=== PATIENT | male | born 1960 | race Caucasian/White ===

== ENCOUNTER → 2021-12-24 10:32 | Outpatient (REF) | payer OTHER, SELFPAY | LOC: ANHLAB 10:32 | PROVIDERS: PCP Emergency Medicine; Visit Provider Nurse Practitioner | DX: D49.2 Neoplasm of unspecified behavior of bone, soft tissue, and skin (principal) | CPT/HCPCS: 88305 ==

== ENCOUNTER 2022-03-03 14:28 | Outpatient (CLI) | payer OTHER, SELFPAY ==
--- NOTE | ~2022-03-03 | XR_ITS ---
EXAMINATION: XR shoulder LT min 2V DATE: 03/03/2022 14:50 INDICATION: Left shoulder pain. TECHNIQUE: 4 views of left shoulder were obtained. COMPARISON: Left shoulder radiographs 03/20/2008 FINDINGS: Bone alignment is normal. No fracture. There is severe osteoarthritis of glenohumeral joint and acromioclavicular joint. There are loose bodies in bicipital groove. IMPRESSION: 1. Polyarticular osteoarthritis. 2. Left glenohumeral joint loose bodies in bicipital groove. Reviewed, dictated and finalized at location A.
--- NOTE | 2022-03-03 15:14 | ECG_ITS ---
Measurements Intervals [place] Rate: 69 P: 61 IA: 157 QRS: 30 QRSD: 86 T: 26 QT: 379 QTc: 406 Interpretive Statements SINUS RHYTHM NO PREVIOUS ECG AVAILABLE FOR COMPARISON Electronically Signed On 03-03-2022 15:53:56 CDT by Morgan Nazario M.D.
== END 2022-03-03 14:29 | disposition home or self-care (01) ==
LOC: ANHIMG 14:31
PROVIDERS: PCP Emergency Medicine; Visit Provider Emergency Medicine
DX: R07.9 Chest pain, unspecified (principal); M19.012 Primary osteoarthritis, left shoulder; M24.012 Loose body in left shoulder
CPT/HCPCS: 73030; 93005

== ENCOUNTER 2023-04-07 11:56 | Outpatient (NON) | payer OTHER, SELFPAY | END 2023-04-07 11:57 | disposition home or self-care (01) | LOC: ANHLAB 04-08 11:58 | PROVIDERS: PCP Emergency Medicine; Visit Provider Nurse Practitioner | DX: L82.1 Other seborrheic keratosis (principal) | CPT/HCPCS: 88305 ==

== ENCOUNTER 2023-05-04 13:58 | Outpatient (NON) | payer OTHER, SELFPAY | END 2023-05-04 13:59 | disposition home or self-care (01) | PROVIDERS: PCP Emergency Medicine; Visit Provider Nurse Practitioner | DX: C44.92 Squamous cell carcinoma of skin, unspecified (principal) | CPT/HCPCS: 88305; 88331 ==

== ENCOUNTER 2025-03-21 10:41 | Outpatient (CLI) | payer MEDICARE, SELFPAY ==
--- NOTE | 2025-03-21 10:55 | ECG_ITS ---
Test Date: 2025-03-21 11:05:52 Measurements Intervals [place] Rate: 52 P: 51 WV: 154 QRS: -4 QRSD: 104 T: 42 QT: 421 QTc: 394 Interpretive Statements SINUS BRADYCARDIA WITH FREQUENT SUPRAVENTRICULAR PREMATURE COMPLEXES BASELINE ARTIFACT- I, II, AVR, AVL, AVF, V1-V6 ABNORMAL ECG No previous ECG available for comparison Electronically Signed On 03-21-2025 12:26:51 CDT by Juan Luis Jackson D.O.
--- OUTSIDE RECORDS SUMMARY | 2025-03-21 12:14 | XMS_ITS | Clinical Summary ---
Author Organization [facility] Thony Hidalgo Address [address] [place] [address] Phone Care Team Providers Care Tube Splicer Name Role Phone Brad Mcelroy MD Primary Care Provider [phone] Social History Tobacco Use Types Packs/Day Years Used Date Smoking Tobacco: Never Assessed Sex and Gender Information Value Date Recorded Sex Assigned at Not on file Legal Sex Male 4:16 AM SCRAP BREAKER Gender Identity Not on file Sexual Orientation Not on file Plan of Treatment Health Maintenance Due Date Last Done Comments DTAP/TDAP/TD VACCINES (1 - Tdap) 1977 COLORECTAL SCREENING 2003 Colorectal Cancer Screening 2003 FIT-DNA Q 3 years 2003 FIT/FOBT Q 1 year 2003 Flex Sig/CT Colonography Q 5 years 2003 PNEUMOCOCCAL VACCINE 50+ YEARS (1 of 1 - PCV) 06/20/20 08 ZOSTER VACCINE (1 of 2) 2008 INFLUENZA VACCINE (#1) 2024 RSV VACCINE (60+ or ) (1 - 1-dose 75+ series) 2033 Insurance [employer] CHOICE POS II Care Teams Tube Splicer Relationship Specialty Start Date End Date Brad Mcelroy MD [address] [place] [address] PCP - General 10/27/05
--- OUTSIDE RECORDS SUMMARY | 2025-03-21 12:14 | XMS_ITS | Clinical Summary ---
Author Organization [facility] Address [address] [place] [address] Care Team Providers Care Public Speaking Instructor Name Role Phone Ramos Vasquez MD Primary Care Provide r Bro Lee MD Unavailable [phone] Allergies No known active allergies Medications pantoprazole DR (PROTONIX) 20 mg EC tabletIndication s:Treatment of Non-Bleeding Gastric Disorder Take 1 tablet (20 mg total) by mouth every morning Active mupirocin (BACTROBAN) 2 % ointment APPLY A PEA SIZE AMOUNT TWICE DAILY TO EACH NOSTRIL FOR 5 DAYS (START 12/13/23) 4 Active cyclobenzaprine (FLEXERIL) 10 mg tablet Take 1 tablet (10 mg total) by mouth 3 (three) times a day as needed for muscle spasms for muscle spasms 4 Active metFORMIN XR (GLUCOPHAGE XR) 500 mg 24 hr tablet Take 1 tablet (500 mg total) by mouth daily with breakfast 3 Active Accu-Chek Guide test strips strip daily 3 Active vit C/E/Zn/coppr/lut ein/zeaxan (PRESERVISION AREDS-2 ORAL)Indications :eye Take 1 tablet by mouth every morning Active ascorbic acid (VITAMIN C ORAL) Take 500 mg by mouth every morning Active cinnamon bark 500 mg capsuleIndicatio ns:supplement Take 1 capsule (500 mg total) by mouth every morning Active cyanocobalamin, vitamin B-12, (VITAMIN B-12 ORAL) Take 1 tablet by mouth every morning Active sildenafiL (VIAGRA) 100 mg tabletIndication s:Erectile Dysfunction Take 1 tablet (100 mg total) by mouth daily as needed for erectile dysfunction Active Active Problems Problem Noted Date Diagnosed Date Osteoarthritis 03/10/2023 S/P TKR (total knee replacement), right 03/06/20 GERD (gastroesophageal reflux disease) 3 Diabetes 02/26/2023 Osteoarthritis of right knee 02/26/2023 Surgical History Surgery Date Site/Laterality Comments SHOULDER ARTHROPLASTY Medical History Medical History Date Comments GERD (gastroesophageal reflux disease) Diabetes (HCC) Osteoarthritis of right knee Family History Medical History Relation Name Comments Diabetes Father Heart disease Father Hepatitis Mother Kidney disease Mother Relation Name Status Comments Father Mother Social History Tobacco Use Types Packs/Day Years Used Date Smoking Tobacco: Never Smokeless Tobacco: Never Tobacco Cessation:Counseling Given: Not Answered AUDIT-C Answer Date Recorded Q1: How often do you have a drink containing alcohol? Never 12/18/2023 Q2: How many drinks containi ng alcohol do you have on a typical day when you are drinking? Patient does not drink 4 Q3: How often do you have si x or more drinks on one occasion? Never 12/18/2023 Personal Safety Answer Date Recorded Have you ever been in or are you currently in a harmful physical or emotional relationship or is someone making you feel afraid or unsafe? Denies 12/18/2023 Sex and Gender Information Value Date Recorded Sex Assigned at Not on file Legal Sex Male 1:44 AM BRANCH ASSOCIATE Gender Identity Not on file Sexual Orientation Not on file Obstetrics History Last Filed Vital Signs Vital Sign Reading Time Taken Comments Blood Pressure 133/76 12/18/2023 1:20 PM BRANCH ASSOCIATE Pulse 73 12/18/2023 1:30 PM BRANCH ASSOCIATE Temperature 36.1 C (97 F) 12/18/2023 11:10 AM BRANCH ASSOCIATE Respiratory Rate 23 12/18/2023 1:30 PM BRANCH ASSOCIATE Oxygen Saturation 96% 12/18/2023 1:25 PM BRANCH ASSOCIATE Inhaled Oxygen Concentration - - Weight 95.9 kg (211 lb 6.4 oz) 12/18/2023 7:34 A M BRANCH ASSOCIATE Height 177.8 cm (5' 10 ) 12/18/2023 7:34 AM BRANCH ASSOCIATE Body Mass Index 30.33 12/18/2023 7:34 AM BRANCH ASSOCIATE Plan of Treatment Health Maintenance Due Date Last Done Comments Albumin Creatinine Ratio, Urine 1958 Colon Cancer Screening-Colonoscopy 1958 Depression Screening 1958 Hemoglobin A1C 1958 Hepatitis C Screening 1958 Prostate Cancer Screening-PSA 1958 Dilated Eye Exam 1958 Foot Exam 1958 Lipid Panel 1958 Hepatitis B Screening 1976 Pneumococcal vaccine 65+ (1 of 2 - PCV) 1977 Zoster Vaccine (1 of 2) 2008 DTaP/Tdap/Td Vaccine (2 - Td or Tdap) 03/17/2023 Abdominal Aortic Aneurysm (AAA) Screen 2023 Well Visit 65+ 2023 eGFR 02/25/2024 02/24/2023 Covid-19 Vaccine (3 - season) 2024, 10/19/2021 Influenza Vaccine (#1) 2024 09/23/2023 Fall Risk Assessment 12/18/2024 12/18/2023 Medical Devices Implanted Type Area Machine Puller Over Device Identifier Shelf Expiration Date Model / Serial / Lot [employer] Attune Cementless Rotate Platform Knee 9 Baseplate Tibial [id number] - [id number] Implanted:Qty: 1 on 03/10/2023 by Chi Murillo MD at [facility] Right: Knee [employer] [id number] 10/29/2032 [id number] / / [id number] [employer] Attune 6mm Cruciate Retaining Rotate Platform Knee 8 Insert [id number] - [id number] Implanted:Qty: 1 on 03/10/2023 by Chi Murillo MD at [facility] Right: Knee [employer] [id number] 08/29/2027 [id number] / / [id number] [employer] Attune Cruciate Retain Cementless Knee Right 8 Component Femoral [id number] - [id number] Implanted:Qty: 1 on 03/10/2023 by Chi Murillo MD at [facility] Right: Knee [employer] [id number] 04/29/2032 [id number] / / [id number] [employer] Triathlon Tritanium Knee 7 Baseplate Tibial 5536-B-700 - [id number] Implanted:Qty: 1 on 12/18/2023 by Bro Lee MD at [facility] Left: Knee [employer] 09/27/2028 5536-B-700 / / [employer] Triathlon Cruciate Retain Bead Knee Left 6 Component Femoral Pa 5517-F-601 - [id number] Implanted:Qty: 1 on 12/18/2023 by Bro Lee MD at [facility] Left: Knee [employer] 08/07/2028 5517-F-601 / / [employer] Insert Tibial Triathlon 7 H9mm Knee Bearing Condylar Stabilize Sterile 8137-C-358-E - [id number] Implanted:Qty: 1 on 12/18/2023 by Bro Lee MD at [facility] Left: Knee [employer] 12/17/2027 [id number] / / Procedures Procedure Name Priority Date/Time Associated Diagnosis Comments EGFR Routine 02/24/2023 10:59 AM CDT Preop testing from Last 3 Months or Most Recently Relevant to Health Maintenance Results * eGFR (02/24/2023 10:59 AM CDT) [facility] eGFR 88 mL/min/1. 73 m2 [facility] Comment: Interpretive Data Reference Interval Normal >/= 90 mL/min/1.73m2 Mildly decreased* 60 - 89 mL/min/1.73m2 Mildly to moderately decreased 45 - 59 mL/min/1.73m2 Moderately to severely decreased 30 - 44 mL/min/1.73m2 Severely decreased 15 - 29 mL/min/1.73m2 Kidney Failure < 15 mL/min/1.73m2 *Relative to young adult level Estimated glomerular filtration rate is determined by the 2020 CKD-EPI equation recommended by the National Kidney Foundation (A Unifying Approach to GFR Estimation: Recommendations of the NKF-ASK Task Force on Reassessing the Inclusion of Race in Diagnosing Kidney Disease, JASN 2020). The CKD-EPI equation should not be used for patients with unstable renal function and has not been validated in children and those over 70. Current interpretive data was last reviewed 2021. Blood 02/24/2023 10:5 9 AM CDT 02/24/2023 10:59 AM CDT us Delaney Ugalde NP LAB BLOOD ORDERABLES Final R esult [facility] [address] [place] [address] from Last 3 Months or Most Recently Relevant to Health Maintenance Insurance [facility] MEDICARE ADVANTAGE [facility] MEDIC[facility] ADVANTAGE Advance Directives For more information, please contact: [phone] * Full Code (Latest Code Status on File) Date Activated Date Inactivated Comments 03/10/2023 2:32 PM 03/11/2023 4:13 PM Care Teams Public Speaking Instructor Relationship Specialty Start Date End Date Ramos Vasquez MD [address] [facility] [place] [address] PCP - General Emergency Medicine 02/24/23 [place] [address] [facility] [address] [place] [address] Referring Physician Orthopedic Surgery 12/18/23
--- OUTSIDE RECORDS SUMMARY | 2025-03-21 12:14 | XMS_ITS | Clinical Summary ---
Author Organization [facility] Address [address] [place] [address] Care Team Providers Care Chainstitch Seat Joiner Name Role Phone Ramos Vasquez MD Primary Care Provider [phone] Allergies No known active allergies Social History Tobacco Use Types Packs/Day Years Used Date Smoking Tobacco: Never Assessed Sex and Gender Information Value Date Recorded Sex Assigned at Not on file Legal Sex Male 5:47 PM ANIMATION PRODUCER Gender Identity Not on file Sexual Orientation Not on file Last Filed Vital Signs Vital Sign Reading Time Taken Comments Blood Pressure 150/79 12/17/2023 5:55 PM ANIMATION PRODUCER Pulse 75 12/17/2023 5:55 PM ANIMATION PRODUCER Temperature 36.7 C (98 F) 12/17/2023 5:55 PM ANIMATION PRODUCER Respiratory Rate 16 12/17/2023 5:55 PM ANIMATION PRODUCER Oxygen Saturation 96% 12/17/2023 5:55 PM ANIMATION PRODUCER Inhaled Oxygen Concentration - - Weight 95.3 kg (210 lb) 12/17/2023 5:55 PM ANIMATION PRODUCER Height 177.8 cm (5' 10 ) 12/17/2023 5:55 PM ANIMATION PRODUCER Body Mass Index 30.13 12/17/2023 5:55 PM ANIMATION PRODUCER Plan of Treatment Health Maintenance Due Date Last Done Comments Colorectal Cancer Screening Colonoscopy (10 Years) 1958 Hepatitis C 1976 Pneumococcal Vaccine: 50+ Years (1 of 1 - PCV) 2008 Zoster Vaccines (1 of 2) 2008 Annual Medicare Wellness Visit 2023 COVID-19 Vaccine (2023-2 5 season) 2024 11/14/2022, 10/19/2021 DTaP, Tdap and Td Vaccines ( 3 - Td or Tdap) 04/21/2033 04/21/2023, 03/17/2013 RSV Immunization or 60+ Years (1 - 1-dose 75+ series) 2033 Meningococcal B Vaccine Aged Out No l onger eligible based on patient's age to complete this topic Meningococcal Vaccine Aged Out No chikis ferdinand eligible based on patient's age to complete this topic RSV Immunizations Under 20 Months Aged Out No longer eligible b ased on patient's age to complete this topic Insurance [employer] Care Teams Chainstitch Seat Joiner Relationship Specialty Start Date End Date Ramos Vasquez MD [address] [place] [address] PCP - General INTERNAL MEDICINE 12/17/23
--- OUTSIDE RECORDS SUMMARY | 2025-03-21 12:14 | XMS_ITS | Encounter Summary ---
Author Organization [facility] Address [address] [place] [address] Care Team Providers Care Environmental Remediation Specialist Name Role Phone Brad Mcelroy MD Primary Care Provider [phone] Encounter Details Date Type Department Care Team (Late st Contact Info) Description 10/27/2005 Outpatient Historical [facility] Edward Varma MD [address] [place] [address] [place] [address] RECTAL & ANAL HEMORRHAGE (Primary Dx) Social History Tobacco Use Types Packs/Day Years Used Date Smoking Tobacco: Never Assessed Sex and Gender Information Value Date Recorded Sex Assigned at Not on file Legal Sex Male 4:16 AM JAVASCRIPT APPLICATION DEVELOPER Gender Identity Not on file Sexual Orientation Not on file documented as of this encounter Plan of Treatment Not on file documented as of this encounter Visit Diagnoses Diagnosis Hemorrhage of rectum and anus- Primary documented in this encounter Care Teams Environmental Remediation Specialist Relationship Specialty Start Date End Date Brad Mcelroy MD [address] [place] [address] PCP - General 10/27/05 documented as of this encounter
--- OUTSIDE RECORDS SUMMARY | 2025-03-21 12:14 | XMS_ITS | Referral Summary ---
Author Organization [facility] Address [address] [place] [address] Care Team Providers Care Epic Cadence Specialists Name Role Phone Ramos Vasquez MD Primary Care Provide r Bro Lee MD Unavailable [phone] Allergies No known active allergies Medications pantoprazole [...] Diabetes 02/26/2023 Osteoarthritis of right knee 02/26/2023 Social History Tobacco Use Types Packs/Day Years Used Date Smoking Tobacco: Never Smokeless Tobacco: Never Tobacco Cessation:Counseling Given: Not Answered AUDIT-C Answer Date Recorded Q1: How often do you have a drink containing alcohol? Never 12/18/2023 Q2: How many drinks containi ng alcohol do you have on a typical day when you are drinking? Patient does not drink Q3: How often do you have si [...] on file Legal Sex Male 1:44 AM REED POLISHER Gender Identity Not on file Sexual Orientation Not on file Last Filed Vital Signs Vital Sign Reading Time Taken Comments Blood Pressure 133/76 12/18/2023 1:20 PM REED POLISHER Pulse 73 12/18/2023 1:30 PM REED POLISHER Temperature 36.1 C (97 F) 12/18/2023 11:10 AM REED POLISHER Respiratory Rate 23 12/18/2023 1:30 PM REED POLISHER Oxygen Saturation 96% 12/18/2023 1:25 PM REED POLISHER Inhaled Oxygen Concentration - - Weight 95.9 kg (211 lb 6.4 oz) 12/18/2023 7:34 A M REED POLISHER Height 177.8 cm (5' 10 ) 12/18/2023 7:34 AM REED POLISHER Body Mass Index 30.33 12/18/2023 7:34 AM REED POLISHER Plan of Treatment Not on file Medical Devices Implanted Type Area Certified Medication Aide Device Identifier Shelf Expiration Date Model / Serial / Lot [employer] Attune Cementless Rotate Platform Knee 9 Baseplate Tibial [id number] - [id number] Implanted:Qty: 1 on 03/10/2023 by Chi Murillo MD at [facility] Right: Knee [employer] [id number] 10/29/2032 [id number] / / [id number] [employer] Attune 6mm Cruciate Retaining Rotate Platform Knee 8 Insert [id number] - [id number] Implanted:Qty: 1 on 03/10/2023 by Chi Murillo MD at [facility] Right: Knee [employer] [id number] 08/29/2027 [id number] / / [id number] [employer] Attune Cruciate Retain Cementless Knee Right 8 Component Femoral [id number] - [id number] Implanted:Qty: 1 on 03/10/2023 by Chi Murillo MD at [facility] Right: Knee [employer] [id number] 04/29/2032 [id number] / / [id number] [employer] Triathlon Tritanium Knee 7 Baseplate Tibial 5536-B-700 - [id number] Implanted:Qty: 1 on 12/18/2023 by Bro Lee MD at [facility] Left: Knee [employer] 09/27/2028 5536-B-700 / / [employer] Triathlon Cruciate Retain Bead Knee Left 6 Component Femoral Pa 5517-F-601 - [id number] Implanted:Qty: 1 on 12/18/2023 by Bro Lee MD at [facility] Left: Knee [employer] 08/07/2028 5517-F-601 / / [employer] Insert Tibial Triathlon 7 H9mm Knee Bearing Condylar Stabilize Sterile 6518-J-205-E - [id number] Implanted:Qty: 1 on 12/18/2023 by Bro Lee MD at [facility] Left: Knee [employer] 12/17/2027 9993-K-[id number] / / Procedures Procedure Name Priority Date/Time Associated Diagnosis Comments EGFR Routine 02/24/2023 10:59 AM CDT Preop testing from Last 3 Months or Most Recently Relevant to Health Maintenance Results * eGFR (02/24/2023 10:59 AM CDT) eGFR 88 mL/min/1. 73 m2 [facility] Comment: Interpretive Data Reference Interval Normal >/= [...] of Race in Diagnosing Kidney Disease, JASN 202). The CKD-EPI equation should not be used for patients with unstable renal function and has not been validated in children and those over 70. Current interpretive data was last reviewed 2021. Blood 02/24/2023 10:5 9 AM CDT 02/24/2023 10:59 AM CDT us Delaney Ugalde NP LAB BLOOD ORDERABLES Final R esult [facility] [address] [place] [address] from Last 3 Months or Most Recently Relevant to Health Maintenance Insurance [facility] MEDICARE ADVANTAGE [facility] MEDIC[facility] ADVANTAGE Advance Directives For more information, please contact: [phone] * Full Code (Latest Code Status on File) Date Activated Date Inactivated Comments 03/10/2023 2:32 PM 03/11/2023 4:13 PM Care Teams Epic Cadence Specialists Relationship Specialty Start Date End Date Ramos Vasquez MD [address] [place] [address] PCP - General Emergency Medicine 02/24/23 [place] [address] [place] [address] Referring Physician Orthopedic Surgery 12/18/23
== END 2025-03-21 10:42 | disposition home or self-care (01) ==
LOC: ANHCARD 10:42
PROVIDERS: PCP Emergency Medicine; Visit Provider Emergency Medicine
DX: R00.2 Palpitations (principal); R94.31 Abnormal electrocardiogram [ECG] [EKG]
CPT/HCPCS: 93005

== ENCOUNTER 2025-03-24 13:26 | Outpatient (CLI) | payer MEDICARE, SELFPAY ==
--- OUTSIDE RECORDS SUMMARY | 2025-03-24 13:32 | XMS_ITS | Referral Summary ---
Author Organization [facility] Address [address] [place] [address] Care Team Providers Care Lehr Tender Name Role Phone Ramos Vasquez MD Primary Care Provide r Bro Lee MD Unavailable [phone] Allergies No known active allergies Medications pantoprazole [...] on file Legal Sex Male 1:44 AM PACKING AND STAMPING MACHINE OPERATOR Gender Identity Not on file Sexual Orientation Not on file Last Filed Vital Signs Vital Sign Reading Time Taken Comments Blood Pressure 133/76 12/18/2023 1:20 PM PACKING AND STAMPING MACHINE OPERATOR Pulse 73 12/18/2023 1:30 PM PACKING AND STAMPING MACHINE OPERATOR Temperature 36.1 C (97 F) 12/18/2023 11:10 AM PACKING AND STAMPING MACHINE OPERATOR Respiratory Rate 23 12/18/2023 1:30 PM PACKING AND STAMPING MACHINE OPERATOR Oxygen Saturation 96% 12/18/2023 1:25 PM PACKING AND STAMPING MACHINE OPERATOR Inhaled Oxygen Concentration - - Weight 95.9 kg (211 lb 6.4 oz) 12/18/2023 7:34 A M PACKING AND STAMPING MACHINE OPERATOR Height 177.8 cm (5' 10 ) 12/18/2023 7:34 AM PACKING AND STAMPING MACHINE OPERATOR Body Mass Index 30.33 12/18/2023 7:34 AM PACKING AND STAMPING MACHINE OPERATOR Plan of Treatment Not on file Medical Devices Implanted Type Area Metal Organ Pipe Maker Device Identifier Shelf Expiration Date Model / Serial / Lot [employer] Attune Cementless Rotate Platform Knee 9 Baseplate Tibial [id number] - [id number] Implanted:Qty: 1 on 03/10/2023 by Chi Murillo MD at [facility] Right: Knee [employer] [id number] 10/29/2032 [id number] / / [id number] [employer] Attune 6mm Cruciate Retaining Rotate Platform Knee 8 Insert [id number] - [id number] Implanted:Qty: 1 on 03/10/2023 by Chi Murillo MD at [facility] Right: Knee [employer] [id number] 08/29/2027 [id number] / / [id number] [employer] Attune Cruciate Retain Cementless Knee Right 8 Component Femoral [id number] - [id number] Implanted:Qty: 1 on 03/10/2023 by Chi Murillo MD at [facility] Right: Knee [employer] [id number] 04/29/2032 [id number] / / [id number] [employer] Triathlon Tritanium Knee 7 Baseplate Tibial 5536-B-700 - [id number] Implanted:Qty: 1 on 12/18/2023 by Bro Lee MD at [facility] Left: Knee [employer] 09/27/2028 5536-B-700 / / [employer] Triathlon Cruciate Retain Bead Knee Left 6 Component Femoral Pa 5517-F-601 - [id number] Implanted:Qty: 1 on 12/18/2023 by Bro Lee MD at [facility] Left: Knee [employer] 08/07/2028 5517-F-601 / / [employer] Insert Tibial Triathlon 7 H9mm Knee Bearing Condylar Stabilize Sterile 4656-L-227-E - [id number] Implanted:Qty: 1 on 12/18/2023 by Bro Lee MD at [facility] Left: Knee [employer] 12/17/2027 2665-L-374-[id number] / / Procedures Procedure Name Priority Date/Time Associated Diagnosis Comments EGFR Routine 02/24/2023 10:59 AM CDT Preop testing from Last 3 Months or Most Recently Relevant to Health Maintenance Results * eGFR (02/24/2023 10:59 AM CDT) eGFR 88 mL/min/1. 73 m2 [facility] Comment: Interpretive Data Reference Interval Normal >/= [...] LAB BLOOD ORDERABLES Final R esult [facility] [address] Department [place] [address] from Last 3 Months or Most Recently Relevant to Health Maintenance Insurance [facility] ADV[facility] Advance Directives For more information, please contact: [phone] * Full Code (Latest Code Status on File) Date Activated Date Inactivated Comments 03/10/2023 2:32 PM 03/11/2023 4:13 PM Care Teams Lehr Tender Relationship Specialty Start Date End Date Ramos Vasquez MD [address] [place] [address] PCP - General Emergency Medicine 02/24/23 [place] [address] [place] [address] Referring Physician Orthopedic Surgery 12/18/23
--- OUTSIDE RECORDS SUMMARY | 2025-03-24 13:32 | XMS_ITS ---
Author Organization [facility] Address [address] [place], [place] [id number] Care Team Providers Care Match Up Worker Name Role Phone SHAIELSH Irwin Unavailable [phone] Ramos Vasquez Unavailable Unavailable ROCIO PAZ Unavailable [phone] REASON FOR VISIT *Possible ingrown nail, previous surgery Medications Medication SIG (Take, Route, Frequency, Duration) Notes Start Date End Date Status metFORMIN HCl ER 500 MG TAKE 2 TABLETS B Y MOUTH IN THE EVENING Oral for 90 Days Active HYDROcodone-Acetaminophen 5-325 MG TAKE 1 TO 2 TABLETS BY MOUTH EVERY 4 TO 6 HOURS NEEDED FOR PAIN Oral for 7 Days Active Accu-Chek Guide - USE ONCE DAILY In Vi tro for 100 Days Active ALPRAZolam 0.5 MG TAKE 1 TABLET BY ORACIO TH TWICE DAILY NEEDED FOR ANXIETY Oral for 10 Days Active Vital Signs Height 70.00 in 04/28/2024 Weight 210 lbs 04/28/2024 BMI 30.13 kg/m2 04/28/2024 Height-cm 177.80 cm 04/28/2024 Weight-kg 95.25 kg 04/28/2024 Encounters Encounter Location Date Provider Diagnosis [facility] [address], [place] [id number] 04/28/2024 ROCIO PAZ Ingrowing nail L60.0 ; Cellulitis of left toe L03.032 ; Pain in left toe(s) M79.675 and Localized edema R60.0 Assessments Encounter Date Diagnosis (ICD Code) Assessment Notes Treatment Notes Treatment Clinical Notes Section Notes 04/28/2024 Ingrowing nail (ICD-10 - L60.0) Following skin prep, the offending nail border to left hallux was debrided without anesthesia. The patient was instructed on monitoring for infection or recurrence. 04/28/2024 Cellulitis of left toe (ICD-10 - L03.032) The area of cellulitis was evaluated and it should be noted that antibiotics were discussed and a close evaluation was performed to assess the need for IV antibiotics versus oral antibiotics. Due to the non-ascending nature of the cellulitis and with no signs of abscess, topical antibiotics were chosen. 04/28/2024 Pain in left toe(s) (ICD-10 - M79.675) 04/28/2024 Localized edema (ICD-10 - R60.0) Plan Of Treatment Treatment Notes Assessment Notes Ingrowing nail Following skin prep, the offending nail border to left hallux was debrided without anesthesia. The patient was instructed on monitoring for infection or recurrence. Cellulitis of left toe The area of cellu litis was evaluated and it should be noted that antibiotics were discussed and a close evaluation was performed to assess the need for IV antibiotics versus oral antibiotics. Due to the non-ascending nature of the cellulitis and with no signs of abscess, topical antibiotics were chosen. Next Appt Details Follow Up: 2 Weeks, Reason: Progress Notes * TYE CAMPBELLDOB:1960 (63 yo M)Acc No.[id number]:04/28/2024 Patient: TYE TAPIA Provider: Helio PAZ :1960 A ge:63 Y S ex:Male Date:04/28/2024 Address:[address] [place] [address] Subjective: * Chief Complaints: * 1 . *Possible ingrown nail, previous surgery. * HPI: H PI: New Complaint E stablished patient presents with a new complaint. , Patient complains of an ingrown nail. Pt states he had his nail removed last year due to issues, pt has been picking at his nail and is now ingrown. L-1 medial , MA: As. * ROS: G eneral / Constitutional: Patient denies c hills, fatigue, fever. C ardiovascular: Patient denies c ongenital heart problems, palpatations, shortness of breath. P atient complains of h air loss on legs. M usculoskeletal: Patient denies o rthotic use, broken foot bone, muscle cramps. S kin: Patient complains of f ungal nails, dry skin, nail changes.? N eurologic: Patient denies s troke, loss of use of extremity, confusion. * Medical History: * Medications: T aking Accu-Chek Guide - Strip USE ONCE DAILY In Vitro , Taking ALPRAZolam 0.5 MG Tablet TAKE 1 TABLET BY MOUTH TWICE DAILY NEEDED FOR ANXIETY Oral , Taking metFORMIN HCl ER 500 MG Tablet Extended Release 24 Hour TAKE 2 TABLETS BY MOUTH IN THE EVENING Oral , Taking HYDROcodone-Acetaminophen 5-325 MG Tablet TAKE 1 TO 2 TABLETS BY MOUTH EVERY 4 TO 6 HOURS NEEDED FOR PAIN Oral Objective: * Vitals: W t:210lbs, Wt-k.25 kg, Ht: 70.00 in, Ht-cm: 177.80 cm, BMI:30.13Index, Body Surface Area: 2.17. * Examination: P hysical Examination: V ascular: Dorsalis Pedis pulse 2/4 left foot Posterior Tibial pulse 2/4 left foot Dorsalis Pedis pulse 2/4 right foot Posterior Tibial pulse 2/4 right foot, Capillary Refill Time is noted to be less than 3 secs to ten digits, temperature gradient is warm to cool to bilateral lower extremity and pedal hair present, there are no varicosities noted to bilateral lower extremity. Dermatologic: there are no open lesions, an ingrowing nail is noted to lateral border of left hallux with periungual erythema and swelling present, noticeable serous drainage expressed from lateral nail border left hallux, interdigital spaces clean dry and intact, no ecchymoses, mild erythema noted to left hallux lateral nail fold Neurologic: protective sensation intact to light touch, vibratory sensation intact to first metatarsophalangeal joint bilaterally Musculoskeletal: no calf pain noted bilateral lower extremity, arch height 3/5 non weight bearing to bilateral foot, pain to palpation lateral and proximal nail fold to left hallux, pain to palpation nail plate left hallux. Assessment: * Assessment: 1. I ngrowing nail - L60.0 (Primary) 2 . C ellulitis of left toe - L03.032 3 . P ain in left toe(s) - M79.675 4 . L ocalized edema - R60.0 Plan: * Treatment: 2. C ellulitis of left toe Notes: The area of cellulitis was evaluated and it should be noted that antibiotics were discussed and a close evaluation was performed to assess the need for IV antibiotics versus oral antibiotics. Due to the non-ascending nature of the cellulitis and with no signs of abscess, topical antibiotics were chosen. * Follow Up: 2 Weeks * Billing Information: * Visit Code: 47071 Office Visit, Est Pt., Level 3. 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 , Patient complains of an ingrown nail. Pt states he had his nail removed last year due to issues, pt has been picking at his nail and is now ingrown. L-1 HERBERTH [place]: As Examination Category Sub-Category Detail Notes Category Not es Physical Examination Vascular: Dorsalis Pedis pulse 2/4 left foot Posterior Tibial pulse 2/4 left foot Dorsalis Pedis pulse 2/4 right foot Posterior Tibial pulse 2/4 right foot, Capillary Refill Time is noted to be less than 3 secs to ten digits, temperature gradient is warm to cool to bilateral lower extremity and pedal hair present, there are no varicosities noted to bilateral lower extremity. Dermatologic: there are no open lesions, an ingrowing nail is noted to lateral border of left hallux with periungual erythema and swelling present, noticeable serous drainage expressed from lateral nail border left hallux, interdigital spaces clean dry and intact, no ecchymoses, mild erythema noted to left hallux lateral nail fold Neurologic: protective sensation intact to light touch, vibratory sensation intact to first metatarsophalangeal joint bilaterally Musculoskeletal: no calf pain noted bilateral lower extremity, arch height 3/5 non weight bearing to bilateral foot, pain to palpation lateral and proximal nail fold to left hallux, pain to palpation nail plate left hallux
--- OUTSIDE RECORDS SUMMARY | 2025-03-24 13:32 | XMS_ITS | Clinical Summary ---
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 Gender Identity Not on file Sexual Orientation Not on file Obstetrics History Last Filed Vital Signs Vital Sign Reading Time Taken Comments Blood Pressure 133/76 12/18/2023 1:20 PM CORPORATION LAWYER Pulse 73 12/18/2023 1:30 PM CORPORATION LAWYER Temperature 36.1 C (97 F) 12/18/2023 11:10 AM CORPORATION LAWYER Respiratory Rate 23 12/18/2023 1:30 PM CORPORATION LAWYER Oxygen Saturation 96% 12/18/2023 1:25 PM CORPORATION LAWYER Inhaled Oxygen Concentration - - Weight 95.9 kg (211 lb 6.4 oz) 12/18/2023 7:34 A M CORPORATION LAWYER Height 177.8 cm (5' 10 ) 12/18/2023 7:34 AM CORPORATION LAWYER Body Mass Index 30.33 12/18/2023 7:34 AM CORPORATION LAWYER Plan of Treatment Health Maintenance Due Date [...] Covid-19 Vaccine (3 - season) 2024, 10/19/2021 Fall Risk Assessment 12/18/2024 12/18/2023 Influenza Vaccine (Season Ended) 2025 09/23/20 Medical Devices Implanted Type Area Network Support Specialist Device Identifier Shelf Expiration Date Model / Serial / Lot [employer] Attune Cementless Rotate Platform Knee 9 Baseplate Tibial [id number] - [id number] Implanted:Qty: 1 on 03/10/2023 by Chi Murillo MD at [facility] Right: Knee [employer] [id number] 10/29/2032 [id number] / / [id number] [employer] Attune 6mm Cruciate Retaining Rotate Platform Knee 8 Insert [id number] - [id number] Implanted:Qty: 1 on 03/10/2023 by Chi Murillo MD at [facility] Right: Knee [employer] [id number] 08/29/2027 [id number] / / [id number] [employer] Attune Cruciate Retain Cementless Knee Right 8 Component Femoral [id number] - [id number] Implanted:Qty: 1 on 03/10/2023 by Chi Murillo MD at [facility] Right: Knee [employer] [id number] 04/29/2032 [id number] / / [id number] [employer] Triathlon Tritanium Knee 7 Baseplate Tibial 5536-B-700 - [id number] Implanted:Qty: 1 on 12/18/2023 by Bro Lee MD at [facility] Left: Knee [employer] 09/27/2028 5536-B-700 / / [employer] Triathlon Cruciate Retain Bead Knee Left 6 Component Femoral Pa 5517-F-601 - [id number] Implanted:Qty: 1 on 12/18/2023 by Bro Lee MD at [facility] Left: Knee [employer] 08/07/2028 5517-F-601 / / [employer] Insert Tibial Triathlon 7 H9mm Knee Bearing Condylar Stabilize Sterile [id number] - [id number] Implanted:Qty: 1 on 12/18/2023 by rBo Lee MD at [facility] Left: Knee [employer] 12/17/2027 [id number]-[id number] / / Procedures Procedure Name Priority Date/Time Associated Diagnosis Comments EGFR Routine 02/24/2023 10:59 AM CDT Preop testing from Last 3 Months or Most Recently Relevant to Health Maintenance Results * eGFR (02/24/2023 10:59 AM CDT) [facility] eGFR 88 mL/min/1. 73 m2 [facility] Comment: Interpretive Data Reference Interval Normal [...] LAB BLOOD ORDERABLES Final R esult [facility] [address] [place] [address] from Last 3 Months or Most Recently Relevant to Health Maintenance Insurance [facility] Address: [facility] [address] [place] [address] [facility] MEDIC[facility] Address: [facility] [address] [place] [address] Advance Directives For more information, please contact: [phone] * Full Code (Latest Code Status on File) Date Activated Date Inactivated Comments 03/10/2023 2:32 PM 03/11/2023 4:13 PM Care Teams Juvenile Corrections Officer Relationship Specialty Start Date End Date Ramos Vasquez MD [address] [facility] [place] [address] PCP - General Emergency Medicine 02/24/23 [place] [address] [facility] [address] [place] [address] Referring Physician Orthopedic Surgery 12/18/23
--- OUTSIDE RECORDS SUMMARY | 2025-03-24 13:32 | XMS_ITS | Clinical Summary ---
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
--- OUTSIDE RECORDS SUMMARY | 2025-03-24 13:33 | XMS_ITS | Encounter Summary ---
Author Organization [facility] Address 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
--- OUTSIDE RECORDS SUMMARY | 2025-03-24 13:33 | XMS_ITS | Clinical Summary ---
Author Organization [facility] Address [address] [place] [address] Care Team Providers Care Speech Communication Instructor Name Role Phone Ramos Vasquez MD Primary Care Provider [phone] Allergies No known active allergies Social History Tobacco Use Types Packs/Day Years Used Date Smoking Tobacco: Never Assessed Sex and Gender Information Value Date Recorded Sex Assigned at Not on file Legal Sex Male 5:47 PM ANALYTICAL ENGINEER Gender Identity Not on file Sexual Orientation Not on file Last Filed Vital Signs Vital Sign Reading Time Taken Comments Blood Pressure 150/79 12/17/2023 5:55 PM ANALYTICAL ENGINEER Pulse 75 12/17/2023 5:55 PM ANALYTICAL ENGINEER Temperature 36.7 C (98 F) 12/17/2023 5:55 PM ANALYTICAL ENGINEER Respiratory Rate 16 12/17/2023 5:55 PM ANALYTICAL ENGINEER Oxygen Saturation 96% 12/17/2023 5:55 PM ANALYTICAL ENGINEER Inhaled Oxygen Concentration - - Weight 95.3 kg (210 lb) 12/17/2023 5:55 PM ANALYTICAL ENGINEER Height 177.8 cm (5' 10 ) 12/17/2023 5:55 PM ANALYTICAL ENGINEER Body Mass Index 30.13 12/17/2023 5:55 PM ANALYTICAL ENGINEER Plan of Treatment Health Maintenance Due Date [...] patient's age to complete [place] [address] [employer] [facility] [employer] Care Teams Speech Communication Instructor Relationship Specialty Start Date End Date Ramos Vasquez MD [address] [place] [address] PCP - General INTERNAL MEDICINE 12/17/23
--- OUTSIDE RECORDS SUMMARY | 2025-03-24 13:33 | XMS_ITS | Patient Health Record ---
Author Organization [facility] Address [address] [place], [place] [id number] Care Team Providers Care Account Retention Representative Name Role Phone SHAILESH Irwin Unavailable [phone] Ramos Vasquez Unavailable Unavailable ROCIO PAZ Unavailable [phone] Allergies No Known Allergies Reason For Referral No Information Medications Medication SIG (Take, Route, Frequency, Duration) [...] FOR ANXIETY Oral for 10 Days Active Problems Problem Type SNOMED Code ICD Code Onset Dates Problem Status W/U Status Risk Notes Problem Ingrowing nail (550434116) Ingrowing nail (L60.0) Active confirmed Vital Signs Height-cm 177.80 cm 04/28/2024 Weight-kg 95.25 kg 04/28/2024 Height 70.00 in 04/28/2024 Weight 210 lbs 04/28/2024 BMI 30.13 kg/m2 04/28/2024 Encounters Encounter Location Date Provider Diagnosis [facility] [address] [place], [place] [id number] 04/28/2024 ROCIO PAZ Ingrowing nail L60.0 ; Cellulitis of left toe L03.032 ; Pain in left toe(s) M79.675 and Localized edema R60.0 Assessments Encounter Date Diagnosis (ICD Code) Assessment Notes Treatment Notes Treatment Clinical Notes Section Notes 04/28/2024 Cellulitis of left toe (ICD-10 - L03.032) The area of cellulitis was evaluated and it should be noted that antibiotics were discussed and a close evaluation was performed to assess the need for IV antibiotics versus oral antibiotics. Due to the non-ascending nature of the cellulitis and with no signs of abscess, topical antibiotics were chosen. 04/28/2024 Ingrowing nail (ICD-10 - L60.0) Following skin prep, the offending nail border to left hallux was debrided without anesthesia. The patient was instructed on monitoring for infection or recurrence. 04/28/2024 Pain in left toe(s) (ICD-10 - M79.675) 04/28/2024 Localized edema (ICD-10 - R60.0) Plan Of Treatment No Information Insurance Providers Payer Name Payer Address Payer Phone Subscriber Number Group Number Insured Name Patient Relationship to Insured Coverage Start Date Coverage End Date [facility] [address] [address] [place] [address] [id number] TYE CAMPBELL Self - patient is the insured
--- OUTSIDE RECORDS SUMMARY | 2025-03-24 13:33 | XMS_ITS ---
Author Organization [facility] Address [address] [place], [place] [id number] Care Team Providers Care Handyperson Name Role Phone SHAILESH Irwin Unavailable [phone] Ramos Vasquez Unavailable Unavailable Allergies No Known Allergies REASON FOR VISIT follow up Medications Medication SIG (Take, Route, Frequency, Duration) Notes Start Date End Date Status ALPRAZolam 0.5 MG TAKE 1 TABLET BY ORACIO TH TWICE DAILY NEEDED FOR ANXIETY Oral for 10 Days Active metFORMIN HCl ER 500 MG TAKE 2 TABLETS B Y MOUTH IN THE EVENING Oral for 90 Days Active HYDROcodone-Acetaminophen 5-325 MG TAKE 1 TO 2 TABLETS BY MOUTH EVERY 4 TO 6 HOURS NEEDED FOR PAIN Oral for 7 Days Active Accu-Chek Guide - USE ONCE DAILY In Vi tro for 100 Days Active Problems Problem Type SNOMED Code ICD Code Onset Dates Problem Status W/U Status Risk Notes Problem Ingrowing nail (229854170) Ingrowing nail (L60.0) Active confirmed Vital Signs Height 70.00 in 09/23/2023 Weight 210 lbs 09/23/2023 BMI 30.13 kg/m2 09/23/2023 Height-cm 177.80 cm 09/23/2023 Weight-kg 95.25 kg 09/23/2023 Encounters Encounter Location Date Provider Diagnosis [facility] [address] [place], [place] [id number] 09/23/2023 SHAILESH Irwin Ingrowing nail L60.0 ; Atherosclerosis of unga arteries of extremities with intermittent claudication, bilateral legs I70.213 ; Pain in right toe(s) M79.674 and Pain in left toe(s) M79.675 Assessments Encounter Date Diagnosis (ICD Code) Assessment Notes Treatment Notes Treatment Clinical Notes Section Notes 09/23/2023 Ingrowing nail (ICD-10 - L60.0) Post Op Nail Avulsion: The patient may discontinue wound care and soaking instructions. 09/23/2023 Atherosclerosis of unga arteries of extremities with intermittent claudication, bilateral legs (ICD-10 - I70.213) 09/23/2023 Pain in right toe(s) (ICD-10 - M79.674) 09/23/2023 Pain in left toe(s) (ICD-10 - M79.675) 09/23/2023 Other Shoe Gear Recommendation: Advised patient on appropriate shoe gear for protection, healing and good foot health Emollient: Recommend that the patient use an emollient such as [id number] r Eucerin cream, Vanicream, or other lotion to the affected area. DIABETIC FOOT CARE: Both feet were examined today. Diabetic preventive care provided as documented. Diabetic foot care education discussed today to including: daily foot inspections, appropriate protective shoe gear, and strict glycemic control. Patient to return to the office routinely for preventive diabetic foot care or sooner if patient notices any acute changes. Plan Of Treatment Treatment Notes Assessment Notes Ingrowing nail Post Op Nail Avulsio n: The patient may discontinue wound care and soaking instructions. Other Shoe Gear Recommendation: Advised patient on appropriate shoe gear for protection, healing and good foot health Emollient: Recommend that the patient use an emollient such as jcgf-srt-slwaafs Eucerin cream, Vanicream, or other lotion to the affected area. DIABETIC FOOT CARE: Both feet were examined today. Diabetic preventive care provided as documented. Diabetic foot care education discussed today to including: daily foot inspections, appropriate protective shoe gear, and strict glycemic control. Patient to return to the office routinely for preventive diabetic foot care or sooner if patient notices any acute changes. Next Appt Details Follow Up: prn, Reason: Progress Notes * TYE CAMPBELLDOB:1960 (63 yo M)Acc No.[id number]:09/23/2023 Patient: TYE TAPIA Provider: Ariel Azevedo DPM :1960 A ge:63 Y S ex:Male Date:09/23/2023 Address:[address] [place] [address] Subjective: * Chief Complaints: * 1 . Follow up. * HPI: H PI: New Complaint E stablished patient presents with a new complaint. Patient went to [place] in July and got an infection in his left great toe after digging at an ingrown toenail. States that he went to urgent care and they removed the whole toenail. States he was put on antibiotics for 10 days. Patient states that it is feeling much better now. Patient states that it is slowly growing back in. 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 Patient denies any other complaints at this time.?MA: josse. * ROS: G eneral / Constitutional: Patient [...] TO 6 HOURS NEEDED FOR PAIN Oral * Allergies: N .K.D.A. Objective: * Vitals: W t:210lbs, Wt-k.25 kg, Ht: 70.00 in, Ht-cm: 177.80 cm, BMI:30.13Index, Body Surface Area: 2.17. * Examination: C onstitutional: Constitutional T he patient is awake, alert, well developed, well groomed and well nourished.. M usculoskeletal: Muscle Strength M uscle strength is 5/5 in regards to dorsiflexion, plantarflexion, inversion, and eversion in bilateral lower extremities.. Foot Structure T he foot structure is noted to be, normal, bilaterally. Gait T here is normal gait noted. N eurologic: Vibratory: n ormal, bilateral. Salisbury-Weinstin 5.07 monofilament I ntact protective sensation via 5.07 g swmf bilateral. Gross sensation G ross sensation is intact to light touch..? V ascular: Dorsalis pedis pulse: 1 /4, bilateral. Posterior tibial pulse: 0 /4, bilaterally. Capillary refill: l ess than 3 seconds, bilaterally. ? D ermatologic: Skin findings: S kin is thin, atrophic and lacking pedal hair.. Nail pathology: N ails 1-5 right and 2-5 left are elongated, thick, discolored, and dystrophic with subungual debris. They are painful to palpation. Hyperkeratotic Skin Lesion T here is no evidence of hyperkeratosis. Ingrown Nail N ail surgery site is healing well left hallux. No signs of infection.. Assessment: * Assessment: 1. I ngrowing nail - L60.0 (Primary) 2 . A therosclerosis of unga arteries of extremities with intermittent claudication, bilateral legs - I70.213 3 . P ain in right toe(s) - M79.674 4 . P ain in left toe(s) - M79.675 Plan: * Treatment: 2. O thers Notes: Shoe Gear Recommendation: Advised patient on appropriate shoe gear for protection, healing and good foot health Emollient: Recommend that the patient use an emollient such as [id number]-hlr-cmdwibp Eucerin cream, Vanicream, or other lotion to the affected area. DIABETIC FOOT CARE: Both feet were examined today. Diabetic preventive care provided as documented. Diabetic foot care education discussed today to including: daily foot inspections, appropriate protective shoe gear, and strict glycemic control. Patient to return to the office routinely for preventive diabetic foot care or sooner if patient notices any acute changes. * Follow Up: p rn * Billing Information: * Visit Code: 56586 Office Visit, Est Pt., Level 3. 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 Patient went to [place] in July and got an infection in his left great toe after digging at an ingrown toenail. States that he went to urgent care and they removed the whole toenail. States he was put on antibiotics for 10 days. Patient states that it is feeling much better now. Patient states that it is slowly growing back in. 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 Patient denies any other complaints at this time. MA: mw Examination Category Sub-Category Detail Notes Category Not es Dermatologic Skin findings: Skin is thin, at rophic and lacking pedal hair. Nail pathology: Nails 1-5 right and 2-5 left are elongated, thick, discolored, and dystrophic with subungual debris. They are painful to palpation Hyperkeratotic Skin Lesion There is no e vidence of hyperkeratosis Ingrown Nail Nail surgery site is healing well left hallux. No signs of infection. Neurologic Vibratory: normal, bilateral Salisbury-Weinstin 5.07 monofilament Intact protective sensation via 5.07 g swmf bilateral Gross sensation Gross sensation is i ntact to light touch. Vascular Dorsalis pedis pulse: 1/4, bilateral Capillary refill: less than 3 seconds, bilaterally Posterior tibial pulse: 0/4, bilaterally Musculoskeletal Muscle Strength Muscle strength is 5/5 in regards to dorsiflexion, plantarflexion, inversion, and eversion in bilateral lower extremities. Foot Structure The foot structure i s noted to be, normal, bilaterally Gait There is normal gait noted Constitutional Constitutional The patient is a wake, alert, well developed, well groomed and well nourished.
--- NOTE | 2025-03-24 13:49 | ECHO_ITS ---
Patient Info Name: Tanmay Freitas Age: 64 years : 1960 Gender: Male Ht: 70 in Wt: 210 lbs BSA: 2.19 m2 HR: 58 bpm BP: 131 / 68 mmHg Technical Quality: Good Exam Date: 03/24/2025 1:57 PM Exam Location: Echo Lab Patient Status: Outpatient Admit Date: 03/24/2025 Staff Ordering Physician: Ramos Vasquez MD [employer] Arc: Shital Crane RDCS Attending Provider: Ramos Vasquez MD Referring Physician: Pedro MCCANN; Exam Type: CA echo doppler color flow Study Info Indications R01.1 - Cardiac murmur, unspecified Complete two-dimensional, color flow and Doppler transthoracic echocardiogram is performed. Summary 1. Complete two-dimensional, color flow and Doppler transthoracic echocardiogram is performed. 2. Left ventricular chamber dimension is normal. 3. Left ventricular systolic function is normal, estimated at 60-65%. 4. The left ventricular diastolic function is normal. 5. E/e' 6 is not elevated. 6. Left atrial chamber dimension is mildly enlarged. 7. There is trace mitral valve regurgitation. 8. There is mild tricuspid valve regurgitation. 9. No pulmonary hypertension, estimated pulmonary arterial systolic pressure is 24 mmHg. Left Ventricle E/e' 6 is not elevated. Left ventricular chamber dimension is normal. Left ventricular systolic function is normal, estimated at 60-65%. The left ventricular diastolic function is normal. Right Ventricle Right ventricular systolic function is normal and with normal TAPSE 2.7 cm. Right ventricular chamber dimension is normal. Left Atria Left atrial chamber dimension is mildly enlarged. Right Atria Right atrial chamber dimension is normal. Aortic Valve The aortic valve is trileaflet. There is no aortic valve stenosis. There is no aortic valve regurgitation. Pulmonic Valve There is no pulmonic regurgitation. Mitral Valve There is no mitral valve stenosis. There is trace mitral valve regurgitation. Tricuspid Valve There is mild tricuspid valve regurgitation. No pulmonary hypertension, estimated pulmonary arterial systolic pressure is 24 mmHg. Pericardium/Pleural There is no pericardial effusion. Inferior Vena Cava Normal inferior vena cava with >50% collapse upon inspiration consistent with normal right atrial pressure, 5 mmHg. Aorta The aortic root size at the sinus of Valsalva is normal. Left Ventricular Outflow Tract Name Value Normal LVOT 2D LVOT Diameter 2.2 cm LVOT Doppler LVOT Peak Gradient 3 mmHg LVOT Mean Gradient 2 mmHg LVOT VTI 19 cm LVOT VTI/AV VTI Ratio 0.7 LVOT Stroke Volume 71 ml LVOT CO 13.2 l/min LVOT CI 6.0 l/min/m2 Pulmonic Valve Name Value Normal PV Doppler PV Peak Gradient 5 mmHg Mitral Valve Name Value Normal MV Doppler MV Decel [place] 270 cm/s2 MV PHT 81 ms MV Area (PHT) 2.7 cm2 4.0-5.0 MV Diastolic Function MV E Peak Velocity 75 cm/s MV A Peak Velocity 40 cm/s MV E/A 1.9 MV Decel Time 278 ms MV Annular TDI MV E/e' (Septal) 6.6 <=8.0 MV E/e' (Lateral) 6.4 <=8.0 MV E/e' (Average) 6.5 Tricuspid Valve Name Value Normal TV Regurgitation Doppler TR Peak Velocity 218 cm/s TR Peak Gradient 19 mmHg Estimated PAP/RSVP RA Pressure 5 mmHg <=5 PA Systolic Pressure 24 mmHg <36 RV Systolic Pressure 24 mmHg <36 Aorta Name Value Normal Ascending Aorta Ao Root Diameter (MM) 3.4 cm Ao Root Diam Index (MM) 1.5 cm/m2 Aortic Valve Name Value Normal AV Doppler AV Peak Velocity 136 cm/s AV Peak Gradient 7 mmHg AV Mean Gradient 4 mmHg AV VTI 29 cm AV Area (Cont Eq VTI) 2.5 cm2 >=3.0 AV Area (Cont Eq Dean) 2.3 cm2 AV Regurgitation 2D LVOT Area 3.7 cm2 Ventricles Name Value Normal LV Dimensions 2D/MM IVS Diastolic Thickness (2D) 0.8 cm 0.6-1.0 LVID Diastole (2D) 4.9 cm 4.2-5.8 LVIW Diastolic Thickness (2D) 0.8 cm 0.6-1.0 LVID Systole (2D) 3.6 cm 2.5-4.0 LVOT Diameter 2.2 cm LV Mass (2D Cubed) 126.50 g 88.00-224.00 LV Mass Index (2D Cubed) 58 g/m2 49-115 Relative Wall Thickness (2D) 0.32 LV Fractional Shortening/Ejection Fraction 2D/MM LV Fractional Shortening (2D) 26 % 25-43 LV EF (2D Teicholz) 51 % 52-72 LV Diastolic Volume (4C MOD) 148 ml LV EF (4C MOD) 54 % LV Diastolic Volume (2C MOD) 157 ml LV EF (2C MOD) 63 % LV Diastolic Volume (BP MOD) 151 ml 62-150 LV Diastolic Volume Index (BP MOD) 69 ml/m2 34-74 LV Systolic Volume (BP MOD) 64 ml 21-61 LV Systolic Volume Index (BP MOD) 29 ml/m2 11-31 LV EF (BP MOD) 58 % 52-72 LV Diastolic Length (4C) 9.5 cm LV Systolic Length (4C) 8.0 cm LV Stroke Volume (4C MOD) 80 ml RV Dimensions 2D/MM RVID Diastole (2D) 4.7 cm 2.5-3.5 Atria Name Value Normal LA Dimensions LA Dimension (MM) 3.3 cm 3.0-4.1 LA Volume (4C A-L) 97 ml LA Volume (BP A-L) 76 ml RA Dimensions RA Area (4C) 16.8 cm2 <=18.0 Report Signatures
== END 2025-03-24 13:27 | disposition home or self-care (01) ==
PROVIDERS: PCP Emergency Medicine; Visit Provider Emergency Medicine
DX: R01.1 Cardiac murmur, unspecified (principal); R00.2 Palpitations
CPT/HCPCS: 93306

== ENCOUNTER 2025-11-07 08:01 | Outpatient (CLI) | payer MEDICARE, SELFPAY | END 2025-11-07 08:02 | disposition home or self-care (01) | LOC: ANHAUDIO 08:01 | PROVIDERS: PCP Emergency Medicine; Visit Provider Emergency Medicine | DX: H91.90 Unspecified hearing loss, unspecified ear (principal) | CPT/HCPCS: 92557; 92567 ==